=== PATIENT | female | born 1965 | race Two or more races ===

== ENCOUNTER 2017-10-15 10:02 | Outpatient (CLI) | payer OTHER | END 2017-10-15 10:12 | disposition home or self-care (01) | LOC: LAB 10:02 | DX: M25.50 Pain in unspecified joint (principal) ==

== ENCOUNTER 2018-12-21 07:58 | Outpatient (CLI) | payer OTHER | END 2018-12-21 08:47 | disposition home or self-care (01) | LOC: MAMO-SONO 07:58 | DX: N63.10 Unspecified lump in the right breast, unspecified quadrant (principal); Z12.31 Encounter for screening mammogram for malignant neoplasm of breast ==

== ENCOUNTER 2022-02-25 09:40 | Outpatient (CLI) | payer OTHER | END 2022-02-25 09:46 | disposition home or self-care (01) | LOC: NUCLEAR 09:40 | PROVIDERS: ATTEND General Practice | DX: I73.9 Peripheral vascular disease, unspecified (principal) ==

== ENCOUNTER 2022-05-15 07:26 | Outpatient (CLI) | payer OTHER | END 2022-05-15 07:36 | disposition home or self-care (01) | LOC: RAD 07:26 | DX: I10 Essential (primary) hypertension (principal); M48.02 Spinal stenosis, cervical region; M16.11 Unilateral primary osteoarthritis, right hip; M51.36 Other intervertebral disc degeneration, lumbar region ==

== ENCOUNTER 2022-05-15 08:27 | Outpatient (CLI) | payer OTHER | END 2022-05-15 08:31 | disposition home or self-care (01) | LOC: NUCLEAR 08:27 | PROVIDERS: ATTEND General Practice | DX: I73.9 Peripheral vascular disease, unspecified (principal) ==

== ENCOUNTER 2022-08-05 11:52 | Outpatient (CLI) | payer OTHER | END 2022-08-05 12:08 | disposition home or self-care (01) | LOC: LAB 11:52 | DX: Z20.822 Contact with and (suspected) exposure to COVID-19 (principal) ==

== ENCOUNTER 2024-05-26 14:02 | Outpatient (CLI) | payer OTHER | END 2024-05-26 14:19 | disposition home or self-care (01) | LOC: TOM 14:02 | DX: R16.0 Hepatomegaly, not elsewhere classified (principal) ==

== ENCOUNTER → 2025-04-03 | Outpatient (CLI) | payer OTHER | END | disposition home or self-care (01) | LOC: SONOGRAMA 08:26 | PROVIDERS: ATTEND Pathology Anatomic Pathology | DX: D34 Benign neoplasm of thyroid gland (principal); E07.89 Other specified disorders of thyroid; E04.2 Nontoxic multinodular goiter ==